=== PATIENT | male | born 1970 | race Caucasian/White ===

== ENCOUNTER 2023-06-27 16:52 | Emergency (ER) | payer OTHER ==
[2023-06-27] MEDS ORDERED: Sodium Chloride 0.9% 10 ML Syringe FLUSH PRN (17:00)
[2023-06-27] MEDS ORDERED: Aspirin 81 MG Tab.Chew PO ONE (17:07)
[2023-06-27 17:30] LABS: BASOPHILS ABSOLUTE AUTO 0.1 x10-3/uL (0.0-0.3); BASOPHILS PERCENT AUTO 1.3 % (0.3-3.8); EOSINOPHILS ABSOLUTE AUTO 0.3 x10-3/uL (0.0-0.6); EOSINOPHILS PERCENT AUTO 3.6 % (0.1-6.8); HEMOGLOBIN 13.8 g/dL (12.9-17.7); LYMPHOCYTES ABSOLUTE AUTO 2.7 x10-3/uL (0.5-4.5); LYMPHOCYTES PERCENT AUTO 37.4 % (15.8-45.3); MEAN CORPUSCULAR HEMOGLOBIN 33.3 pg (27.0-33.3); MEAN CORPUSCULAR HGB CONC 34.6 g/dL (28.7-35.3); MEAN CORPUSCULAR VOLUME 96.4 fL (80.8-98.7); MEAN PLATELET VOLUME 7.7 fL (6.7-11.0); MONOCYTES ABSOLUTE AUTO 0.4 x10-3/uL (0.0-1.2); MONOCYTES PERCENT AUTO 5.9 % (5.5-15.2); NEUTROPHILS ABSOLUTE AUTO 3.8 x10-3/uL (1.7-6.9); NEUTROPHILS PERCENT AUTO 51.8 % (40.3-71.8); PLATELET COUNT,PLT 231 x10(3)uL (117-477); RED BLOOD CELL COUNT 4.15 x10(6)uL (3.90-5.90); RED CELL DISTRIBUTION WIDTH 15.9 % (12.4-15.0); WHITE BLOOD CELL COUNT,WBC 7.3 x10-3/uL (3.2-10.1)
[2023-06-27 17:39] LABS: BLOOD UREA NITROGEN,BUN 7 mg/dL (7-18); BUN/CREATININE RATIO 4.7 (9-20); CALCIUM 8.7 mg/dL (8.6-10.2); CARBON DIOXIDE,CO2 28 mmol/L (21-32); CHLORIDE,CL 104 mmol/L (100-110); CREATININE 1.5 mg/dL (0.70-1.30); ESTIMATED GFR 55 mL/min (>60); GLUCOSE RANDOM 103 mg/dL (80-116); POTASSIUM,K 3.8 mmol/L (3.5-5.3); SODIUM,NA 139 mmol/L (135-145)
[2023-06-27 17:44] LABS: A/G RATIO 1.2; ALANINE AMINOTRANSFERASE,ALT 31 U/L (12-36); ALBUMIN 3.8 g/dL (3.5-5.2); ALKALINE PHOSPHATASE 65 IU/L (56-112); ASPARTATE AMNIOTRANSFERASE,AST 21 IU/L (5-25); BILIRUBIN TOTAL 0.4 mg/dL (0.1-1.3)
== END 2023-06-27 20:20 | disposition home or self-care (01) ==
LOC: FB.ED 16:52
DX: R07.9 Chest pain, unspecified (principal); M47.812 Spondylosis without myelopathy or radiculopathy, cervical region; M54.12 Radiculopathy, cervical region
CPT/HCPCS: 36415; 71045; 72050; 80053; 83735; 84484; 85025; 85379; 93005; 93010; 99283; 99285; A9270-GY; J3490